=== PATIENT | female | born 1955 | race Caucasian/White ===

== ENCOUNTER 2017-04-10 10:01 | Outpatient (CLI) | payer BC | END 2017-04-10 16:48 | disposition home or self-care (01) | LOC: SMA 10:01 | PROVIDERS: ATTEND Family Medicine | DX: Z12.31 Encounter for screening mammogram for malignant neoplasm of breast (principal) | CPT/HCPCS: G0202 ==

== ENCOUNTER 2019-01-18 09:20 | Outpatient (CLI) | payer BC | END 2019-01-18 21:00 | disposition home or self-care (01) | LOC: SMA 09:20 | PROVIDERS: ATTEND General Practice | DX: Z12.31 Encounter for screening mammogram for malignant neoplasm of breast (principal) | CPT/HCPCS: 77067 ==

== ENCOUNTER 2020-11-23 09:51 | Outpatient (CLI) | payer BC | END 2020-11-23 20:00 | disposition home or self-care (01) | LOC: SMA 09:51 | PROVIDERS: ATTEND General Practice | DX: Z12.31 Encounter for screening mammogram for malignant neoplasm of breast (principal) | CPT/HCPCS: 77067 ==